=== PATIENT | male | born 1955 | race Caucasian/White ===

== ENCOUNTER 2016-08-10 11:46 | Emergency (ER) | payer OTHER ==
[~2016-08-10] VITALS: Ht 193 cm; Wt 96.7 kg
[~2016-08-10 11:46] MED LIST: Ambien PO; BENTYL20 MG PO; CARAFATE100 MG/ML PO; CIPRO500 MG PO; COLACE100 MG PO; DILAUDID2 MG PO; LORTAB 5-325 M1 EACH PO; MILLIPRED DP5 MG PO; NEXIUM40 MG PO; PREDNISONE10 MG PO; PRILOSEC20 MG PO; VALIUM5 MG PO; ZOLPIDEM TARTRA10 MG PO; Zantac PO
[2016-08-10 13:22] LABS: EOSINOPHIL (%) 0.9 % (0-5); EOSINOPHIL COUNT 0.1 K/uL (0-0.3); HEMATOCRIT 45.5 % (38.0-50.0); IMMATURE GRANULOCYTE (%) 0.3 % (0.0-0.7); INSTRUMENT ABS NEUTROPHIL CT 8.7 K/uL; MCH 28.7 PG (29.0-34.0); MCHC 32.3 G/DL (30.0-36.0); MCV 88.7 FL (86-99); MEAN PLAT.VOLUME 10.5 uM^3 (9.0-12.4); MONOCYTE (%) 7.2 % (3-12); MONOCYTE COUNT 0.8 K/uL (0-0.8); NEUTROPHIL (%) 81.5 % (45-76); NEUTROPHIL COUNT 8.7 K/uL (1.8-6.4); PLATELET COUNT 197 K/uL (156-360); RBC DIS.WIDTH-CV 13.1 % (11.8-14.6); RBC DIS.WIDTH-SD 42.8 % (39-53); RED BLOOD COUNT 5.13 M/uL (4.00-5.50); WHITE BLOOD COUNT 10.6 K/uL (4.1-10.2)
[2016-08-10 13:34] LABS: CHLORIDE 104 mEq/L (99-109); POTASSIUM 3.6 mEq/L (3.7-5.4); SODIUM 139 mEq/L (136-147)
[2016-08-10 13:36] LABS: GLUCOSE 174 mg/dL (70-99)
[2016-08-10 13:38] LABS: ANION GAP 10 MEQ/L (2-14)
[2016-08-10 13:40] LABS: ALKALINE PHOSPHATASE 69 IU/L (3-129); GFR ESTIMATE (CALCULATED) > 59 mL/min/
[2016-08-10 13:41] LABS: UREA NITROGEN (BUN) 10 mg/dL (9-23)
[2016-08-10 14:46] LABS: ADD MIUA? NO; BILIRUBIN NEGATIVE; BLOOD NEGATIVE; COLOR YELLOW ((YELLOW)); GLUCOSE (STRIP) 50; KETONES NEGATIVE; LEUKOCYTES NEGATIVE; NITRITE NEGATIVE; PROTEIN (STRIP) NEGATIVE; SPECIFIC GRAVITY 1.015 (1.000-1.030); UCUL ADDED? NO; UROBILINOGEN 0.2 MG/DL (0.2-1.0)
[2016-08-10 15:20] LABS: PROTHROMBIN TIME 10.1 (9.2-11.2); PTT 29.3 (25-32)
[2016-08-10] MEDS ORDERED: AUGMENTIN875 MG PO (19:16)
[2016-08-10 19:51] VITALS: BP 133/77
== END 2016-08-10 20:23 | disposition home or self-care (01) ==
LOC: EME 11:46
PROVIDERS: Emergency Medicine
DX: T81.4XXA Infection following a procedure, initial encounter (principal); K65.1 Peritoneal abscess; Y83.8 Other surgical procedures as the cause of abnormal reaction of the patient, or of later complication, without mention of misadventure at the time of the procedure; E78.5 Hyperlipidemia, unspecified; K21.9 Gastro-esophageal reflux disease without esophagitis; Z87.442 Personal history of urinary calculi
CPT/HCPCS: 74177; 75989; 80053; 81003; 85025; 85610; 85730; 87070; 87075; 87077; 87186; 87205; 99281; 99285; C1769; J1335; J2270; J2405; J3010; J7030; J7050

== ENCOUNTER 2016-08-11 15:12 | Emergency (ER) | payer OTHER ==
[~2016-08-11] VITALS: Ht 193 cm; Wt 94.8 kg
[~2016-08-11 15:12] MED LIST changes: +AUGMENTIN875 MG PO
[2016-08-11 17:29] VITALS: BP 112/75
== END 2016-08-11 17:29 | disposition home or self-care (01) ==
LOC: EME 15:12
DX: T81.4XXA Infection following a procedure, initial encounter (principal); Z48.03 Encounter for change or removal of drains
CPT/HCPCS: 99281; 99282

== ENCOUNTER 2017-12-06 23:48 | Inpatient (IN) | payer OTHER ==
[~2017-12-06] VITALS: Ht 193 cm; Wt 101.5 kg
[2017-12-07 00:20] LABS: ALBUMIN 4.3 g/dL (3.2-4.8); CHLORIDE 103 mEq/L (99-109); POTASSIUM 4.1 mEq/L (3.7-5.4); SODIUM 141 mEq/L (136-147)
[2017-12-07 00:22] LABS: GLUCOSE 144 mg/dL (70-99)
[2017-12-07 00:23] LABS: TOTAL PROTEIN 7.3 g/dL (6.4-8.3)
[2017-12-07 00:24] LABS: TOTAL BILIRUBIN 0.9 mg/dL (0.0-1.0)
[2017-12-07 00:26] LABS: ALKALINE PHOSPHATASE 78 IU/L (3-129); CREATININE 1.3 mg/dL (0.6-1.3); GFR ESTIMATE (CALCULATED) > 59 mL/min/ (58.99-99999)
[2017-12-07 00:27] LABS: UREA NITROGEN (BUN) 11 mg/dL (9-23)
[2017-12-07 00:28] LABS: AST (GOT) 34 IU/L (2-34)
[2017-12-07 00:29] LABS: ALT (GPT) 81 IU/L (3-49)
[2017-12-07 00:30] LABS: LIPASE 34 U/L (1.0-51.0)
[2017-12-07 00:31] LABS: HEMATOCRIT 47.5 % (38.0-50.0); HEMOGLOBIN 16.3 G/DL (12.5-16.6); MCH 29.6 PG (29.0-34.0); MCHC 34.3 G/DL (30.0-36.0); MCV 86.2 FL (86-99); PLATELET COUNT 200 K/uL (156-360); RBC DIS.WIDTH-SD 40.4 % (39-53); RED BLOOD COUNT 5.51 M/uL (4.00-5.50); WHITE BLOOD COUNT 6.2 K/uL (4.1-10.2)
[2017-12-07 03:13] LABS: APPEARANCE CLEAR ((CLEAR)); BILIRUBIN NEGATIVE; BLOOD NEGATIVE; COLOR STRAW ((YELLOW)); GLUCOSE (STRIP) NEGATIVE; KETONES NEGATIVE; LEUKOCYTES NEGATIVE; NITRITE NEGATIVE; PROTEIN (STRIP) NEGATIVE; SPECIFIC GRAVITY 1.049 (1.000-1.030); UCUL ADDED? NO; UROBILINOGEN 0.2 MG/DL (0.2-1.0)
[2017-12-07 05:33] VITALS: BP 162/85
[2017-12-07 07:41] VITALS: BP 130/86
[2017-12-07] MEDS ORDERED: RESTASIS MULTI5.5 ML BOTH EYES (11:20)
[2017-12-07] MEDS ORDERED: FLONASE16 G1 BOTH NARES (11:20)
[2017-12-07] MEDS ORDERED: NEURONTIN300 MG PO (11:21)
[2017-12-07] MEDS ORDERED: VENTOLIN HFA18 GM IH (11:21)
[2017-12-07] MEDS ORDERED: CYANOCOBAL1000 MCG/2 IM (11:22)
[2017-12-07] MEDS ORDERED: OLOPATADINE HC2.5 ML BOTH EYES (11:32)
[2017-12-07 11:45] VITALS: BP 144/88
[2017-12-07 16:07] VITALS: BP 153/95
[2017-12-07 23:42] VITALS: BP 130/62
[2017-12-08 08:15] VITALS: BP 127/78
[2017-12-08 15:41] VITALS: BP 143/83
[2017-12-08 23:24] VITALS: BP 132/72
[2017-12-09 08:23] VITALS: BP 138/91
== END 2017-12-09 13:02 | disposition home or self-care (01) | DRG 389 ==
LOC: EME 23:48 → EDOF 12-07 04:42 → 3EAST 12-07 04:42
DX: K56.50 Intestinal adhesions [bands], unspecified as to partial versus complete obstruction (principal); N28.9 Disorder of kidney and ureter, unspecified; E78.5 Hyperlipidemia, unspecified; F32.9 Major depressive disorder, single episode, unspecified; R00.0 Tachycardia, unspecified; D64.9 Anemia, unspecified; Z87.442 Personal history of urinary calculi; K21.9 Gastro-esophageal reflux disease without esophagitis; K55.9 Vascular disorder of intestine, unspecified
CPT/HCPCS: 71045; 74018; 74177; 80053; 81003; 83605; 83690; 85027; 93005; 99281; 99285; J1170; J2270; J2405; J7040; S0028